=== PATIENT | male | born 2000 | race African-American/Black ===

== ENCOUNTER 2025-02-23 11:24 | Outpatient (REF) | payer OTHER, SELFPAY ==
[2025-02-23 12:59] LABS: MANUAL DIFF FLAG NO
[2025-02-23 13:28] LABS: Hematocrit 44.0 % (42.0-52.0); Hemoglobin 15.1 g/dl (14.0-18.0); Imm Gran Abs Auto 0.01 X10*3/uL (0.00-0.03); Imm Gran Pct Auto 0.2 % (0.0-0.4); Lymphocytes Absolute Auto 1.6 X10*3/uL (1.2-4.9); Mean Corpuscular HGB Conc 34.3 g/dl (31.0-36.0); Mean Corpuscular Hemoglobin 31.9 pg (27.0-33.0); Mean Corpuscular Volume 93.0 fL (80.0-98.0); NRBC Abs Auto 0.000 X10*3/uL (0.0-0.012); NRBC Pct Auto 0.0 /100WBC (0.0-0.2); Platelet Count 237 X10*3/uL (160-400); Red Blood Count 4.73 X10*6/uL (4.60-5.80); White Blood Count 4.7 X10*3/uL (4.8-10.8)
[2025-02-23 14:23] LABS: Alanine Aminotransferase 19 U/L (0-40); Albumin Level 4.5 g/dL (3.5-5.0); Alkaline Phosphatase 83 U/L (39-117); Anion Gap 10 (12-20); Aspartate Amino Transferase 23 U/L (5-37); Blood Urea Nitrogen 11 mg/dL (9-16); Calcium 9.0 mg/dL (8.4-10.2); Carbon Dioxide 27 mmol/L (22-29); Chloride 107 mmol/L (96-108); Estimated Glomerular Filt Rate > 60; Potassium 4.0 mmol/L (3.3-5.1); Sodium 140 mmol/L (135-145); Total Protein 7.2 g/dL (6.5-8.0)
[2025-02-24 08:11] LABS: HBS Num1 9.71 mIU/mL (0-7.99); HBsAGNum1 0.39 S/CO (0.00-0.99); Hepatitis B Surface Antigen Negative (Negative); ~HepC Num1 0.12 S/CO (0.00-0.79); ~Hepatitis C Antibody Nonreactive (Nonreactive)
[2025-02-24 12:03] LABS: HBS Num2 10.01 mIU/mL (0-7.99); HBS Num3 9.96 mIU/mL (0-7.99); ~Hepatitis B Surface Antibody GRAYZONE (Nonreactive)
[2025-02-27 18:38] LABS: HIV 1 Antibody POSITIVE (NEGATIVE); HIV 2 Antibody NEGATIVE (NEGATIVE)
[2025-02-28 17:19] LABS: Absolute CD8 Count 900 cells/uL (180-1170); Percent CD8 Cells 52 % (12-42)
== END 2025-02-23 11:25 | disposition home or self-care (01) ==
LOC: HO.HHCL 11:24
PROVIDERS: PCP Family Medicine; Visit Provider Family Medicine
DX: Z00.00 Encounter for general adult medical examination without abnormal findings (principal); Z21 Asymptomatic human immunodeficiency virus [HIV] infection status; Z11.4 Encounter for screening for human immunodeficiency virus [HIV]; Z11.59 Encounter for screening for other viral diseases
CPT/HCPCS: 36415; 80053; 83036; 84443; 85025; 86360; 86701; 86702; 86706; 86803; 87340; 87389